=== PATIENT | female | born 1955 | race Caucasian/White ===

== ENCOUNTER 2020-12-11 16:54 | Emergency (ER) | payer MEDICARE ==
[~2020-12-11] VITALS: Ht 162.5 cm; Wt 63.5 kg
[2020-12-11 17:49] LABS: BASO % 0.1 % (0.0-1.0); HEMATOCRIT 38.5 % (37.0-47.0); LYMPH # 0.6 10*3/uL (1.3-4.4); LYMPH % 8.5 % (27.0-41.0); MEAN CELL VOLUME 99.7 fl (81.0-99.0); MEAN CORPUSCULAR HGB 32.1 pg (27.0-31.0); MEAN CORPUSCULAR HGB CONC 32.2 g/dl (33.0-37.0); MONO % 13.7 % (3.0-9.0); NEUT # 5.6 10*3/uL (2.3-7.9); PLATELET COUNT AUTOMATED 220 10*3/uL (130-400); RED BLOOD COUNT 3.86 10*6/uL (4.10-5.10); RED CELL DISTRI WIDTH 13.1 % (0-14.5); WHITE BLOOD COUNT 7.3 10*3/uL (4.8-10.8)
[2020-12-11 18:09] LABS: ALBUMIN 2.9 gm/dl (3.1-4.5); CREATININE 1.15 mg/dL (0.55-1.02); POTASSIUM 4.1 mmol/L (3.5-5.1); TOTAL PROTEIN 7.4 gm/dL (6.4-8.2)
[2020-12-11] MEDS ORDERED: DECADRON6 M1 PO (19:09)
== END 2020-12-11 19:45 | disposition home or self-care (01) ==
LOC: ED 16:54
PROVIDERS: Student in an Organized Health Care Education/Training Program
DX: U07.1 COVID-19 (principal); E88.09 Other disorders of plasma-protein metabolism, not elsewhere classified; N18.31 Chronic kidney disease, stage 3a; R11.2 Nausea with vomiting, unspecified; F17.200 Nicotine dependence, unspecified, uncomplicated; Z88.1 Allergy status to other antibiotic agents

== ENCOUNTER 2022-12-12 14:08 | Emergency (ER) | payer OTHER ==
[~2022-12-12] VITALS: Ht 162.5 cm; Wt 63.5 kg
[~2022-12-12 14:08] MED LIST: DECADRON6 M1 PO
[2022-12-12 16:46] LABS: BASO # 0.1 10*3/uL (0.0-0.1); BASO % 0.6 % (0.0-1.0); EOS # 0.2 10*3/uL (0.0-0.4); EOS % 1.3 % (1.0-4.0); HEMATOCRIT 33.3 % (37.0-47.0); LYMPH % 16.9 % (27.0-41.0); MEAN CELL VOLUME 99.1 fl (81.0-99.0); MEAN CORPUSCULAR HGB 32.7 pg (27.0-31.0); MEAN PLATELET VOLUME 10.3 fl (9.6-12.3); MONO # 1.1 10*3/uL (0.1-1.0); MONO % 9.2 % (3.0-9.0); NEUT # 8.6 10*3/uL (2.3-7.9); NEUT % 71.4 % (47.0-73.0); PLATELET COUNT AUTOMATED 296 10*3/uL (130-400); RED BLOOD COUNT 3.36 10*6/uL (4.10-5.10); RED CELL DISTRI WIDTH 12.7 % (0-14.5)
[2022-12-12] MEDS ORDERED: PREDNISONE10 MG PO (17:03)
[2022-12-12] MEDS ORDERED: VIBRA-TAB100 MG PO (17:03)
[2022-12-12 17:11] LABS: ALKALINE PHOSPHATASE 99 U/L (46-116); BUN 26 mg/dl (9-23); CHLORIDE 107 mmol/L (98-107); POTASSIUM 4.4 mmol/L (3.4-5.1); SGPT/ALT < 7 U/L (10-49); TOTAL PROTEIN 6.4 gm/dL (6.0-8.0)
[2022-12-12] MEDS ORDERED: Ondansetron4 MG PO (17:39)
== END 2022-12-12 18:00 | disposition home or self-care (01) ==
LOC: ED 14:08
PROVIDERS: Student in an Organized Health Care Education/Training Program
DX: J44.1 Chronic obstructive pulmonary disease with (acute) exacerbation (principal); Z20.822 Contact with and (suspected) exposure to COVID-19; R11.2 Nausea with vomiting, unspecified; Z88.1 Allergy status to other antibiotic agents

== ENCOUNTER → 2024-05-14 | Outpatient (CLI) | payer OTHER ==
[~2024-05-14] MED LIST changes: +GLIPIZIDE10 M2 PO; +NATURE'S BLEND F1 MG PO; +Ondansetron4 MG PO; +PANTOPRAZOLE SO40 MG PO; +PHARMASSURE V500 MCG PO; +PREDNISONE10 MG PO; +RAMIPRIL2.5 MG PO; +VIBRA-TAB100 MG PO; +VITAMIN D350 MC2 PO
== END | disposition home or self-care (01) ==
LOC: RAD 15:28
PROVIDERS: ATTEND Nurse Practitioner Family
DX: M47.812 Spondylosis without myelopathy or radiculopathy, cervical region (principal); M54.2 Cervicalgia; M25.512 Pain in left shoulder; M43.22 Fusion of spine, cervical region

== ENCOUNTER 2024-12-19 14:25 | Emergency (ER) | payer OTHER ==
[~2024-12-19] VITALS: Ht 162.5 cm; Wt 62.1 kg
[2024-12-19] MEDS ORDERED: Ondansetron4 MG PO (14:38)
[2024-12-19] MEDS ORDERED: FAMOTIDINE40 MG PO (14:39)
[2024-12-19] MEDS ORDERED: FAMOTIDINE 50 ML IV ONE (14:50)
[2024-12-19] MEDS ORDERED: MG-AL HYDROXIDE/SIMETICONE 30 ML UDC PO STA (14:50)
[2024-12-19] MEDS ORDERED: Lidocaine Hydrochloride 15 ML UDC PO STA (14:50)
[2024-12-19] MEDS ORDERED: SODIUM CHLORIDE 0.9% 1,000 ML IV ONE (14:50)
[2024-12-19] MEDS ORDERED: Dicyclomine Hydrochloride 20 MG/10 ML OSYR PO STA (14:50)
[2024-12-19] MEDS ORDERED: Metoclopramide Hydrochloride 10 MG/2 ML VIAL IV ONE (14:55)
[2024-12-19] MEDS ORDERED: diphenhydrAMINE hydrochloride 50 MG/ML VIAL IV ONE (14:55)
[2024-12-19] MEDS ORDERED: MORPHINE Sulfate 2 MG/ML SYR IV ONE (14:55)
[2024-12-19 15:18] LABS: BASO % 0.3 % (0.0-1.0); EOS # 0.1 10*3/uL (0.0-0.4); EOS % 0.4 % (1.0-4.0); HEMATOCRIT 41.2 % (37.0-47.0); MEAN CELL VOLUME 101.5 fl (81.0-99.0); MEAN CORPUSCULAR HGB CONC 32.5 g/dl (33.0-37.0); MONO # 1.2 10*3/uL (0.1-1.0); MONO % 7.7 % (3.0-9.0); NEUT # 12.7 10*3/uL (2.3-7.9); NEUT % 84.7 % (47.0-73.0); PLATELET COUNT AUTOMATED 324 10*3/uL (130-400); RED BLOOD COUNT 4.06 10*6/uL (4.10-5.10); RED CELL DISTRI WIDTH 13.2 % (0-14.5)
[2024-12-19 15:39] LABS: ALKALINE PHOSPHATASE 121 U/L (46-116); BUN 25 mg/dl (9-23); CHLORIDE 93 mmol/L (98-107); LIPASE 29 U/L (12-53); POTASSIUM 3.3 mmol/L (3.4-5.1); TOTAL PROTEIN 6.8 gm/dL (6.0-8.0)
[2024-12-19 15:43] LABS: SGPT/ALT < 7 U/L (5-49)
[2024-12-19] MEDS ORDERED: INSULIN REGULAR, HUMAN 1 UNIT/0.01 ML IV ONE (16:45)
[2024-12-19] MEDS ORDERED: POTASSIUM CHLORIDE 20 MEQ TAB PO ONE ×2 (16:45→17:05)
[2024-12-19 17:22] LABS: BILIRUBIN 2+ (Negative); BLOOD Trace-Intact (Negative); CLARITY Turbid (Clear); COLOR Dark Yellow (Yellow); GLUCOSE 1+ (Negative); KETONE Trace (Negative); LEUKO ESTERASE 1+ (Negative); NITRITE Negative (Negative); SPECIFIC GRAVITY 1.015 (1.001-1.030)
[2024-12-19 17:29] LABS: BACTERIA 3+
[2024-12-19 17:30] LABS: EPITHELIAL CELLS TNTC; HYALINE CAST 0-2; RBC 0-2 rbc/hpf (0-2)
[2024-12-19] MEDS ORDERED: HYDROCODONE-AC1 EAC1 PO (17:41)
[2024-12-19] MEDS ORDERED: SEPTDS PO (17:41)
== END 2024-12-19 17:45 | disposition home or self-care (01) ==
LOC: ED 14:25
PROVIDERS: Physician Assistant Medical
DX: A41.9 Sepsis, unspecified organism (principal); N39.0 Urinary tract infection, site not specified; E11.65 Type 2 diabetes mellitus with hyperglycemia; J44.9 Chronic obstructive pulmonary disease, unspecified; K21.9 Gastro-esophageal reflux disease without esophagitis; R11.2 Nausea with vomiting, unspecified; R19.7 Diarrhea, unspecified; E11.22 Type 2 diabetes mellitus with diabetic chronic kidney disease; N18.6 End stage renal disease; F17.200 Nicotine dependence, unspecified, uncomplicated; Z88.1 Allergy status to other antibiotic agents; Z88.6 Allergy status to analgesic agent; Z98.890 Other specified postprocedural states; Z90.710 Acquired absence of both cervix and uterus

== ENCOUNTER → 2025-01-29 | Outpatient (CLI) | payer OTHER ==
[~2025-01-29] MED LIST changes: +FAMOTIDINE40 MG PO; +HYDROCODONE-AC1 EAC1 PO; +OMEPRAZOLE40 MG PO; +Ondansetron8 MG PO; +SEPTDS PO
[2025-01-29 11:15] LABS: HEMATOCRIT 32.6 % (37.0-47.0); MEAN CELL VOLUME 109.8 fl (81.0-99.0); MEAN PLATELET VOLUME 10.2 fl (9.6-12.3); PLATELET COUNT AUTOMATED 174 10*3/uL (130-400); RED BLOOD COUNT 2.97 10*6/uL (4.10-5.10); RED CELL DISTRI WIDTH 13.6 % (0-14.5); WHITE BLOOD COUNT 11.6 10*3/uL (4.8-10.8)
[2025-01-29 11:16] LABS: MANUAL DIFF REFLEX YES
[2025-01-29 11:42] LABS: TOTAL CELLS COUNTED 100 #CELLS
[2025-01-29 11:43] LABS: ALKALINE PHOSPHATASE 107 U/L (46-116); BUN 13 mg/dl (9-23); CHLORIDE 104 mmol/L (98-107); FREE T4 1.31 ng/dl (0.89-1.76); POTASSIUM 4.7 mmol/L (3.4-5.1); SGPT/ALT 12 U/L (5-49); TOTAL PROTEIN 5.5 gm/dL (6.0-8.0)
[2025-01-29 11:44] LABS: BURR CELLS MODERATE; PLATELET SUFFICIENCY NORMAL (NORMAL)
== END | disposition home or self-care (01) ==
LOC: LAB 10:48
PROVIDERS: ATTEND Internal Medicine Hematology & Oncology
DX: I49.1 Atrial premature depolarization (principal); C22.1 Intrahepatic bile duct carcinoma; E11.9 Type 2 diabetes mellitus without complications

== ENCOUNTER 2025-02-05 10:56 | Observation (INO) | payer OTHER ==
[2025-02-05] VITALS (16 sets, daily range): BP systolic 44–140; BP diastolic 15–69
[~2025-02-05] VITALS: Ht 162.5 cm; Wt 55.3 kg
[2025-02-05] MEDS ORDERED: diphenhydrAMINE hydrochloride 50 MG/ML VIAL IV ONE (11:20)
[2025-02-05] MEDS ORDERED: SODIUM CHLORIDE 0.9% 1,000 ML IV ONE ×2 (11:20)
[2025-02-05] MEDS ORDERED: FAMOTIDINE 50 ML IV ONE (11:20)
[2025-02-05] MEDS ORDERED: Metoclopramide Hydrochloride 10 MG/2 ML VIAL IV ONE (11:20)
[2025-02-05] MEDS ORDERED: Nicotine 21 MG PATCH T ONE (12:15)
[2025-02-05] MEDS ORDERED: Vancomycin Hydrochloride 250 ML IV ONE (12:55)
[2025-02-05] MEDS ORDERED: NOREPINEPHRINE BITARTRATE/D5W 250 ML IV ONE ×2 (13:00→17:58)
[2025-02-05] MEDS ORDERED: CEFEPIME HCL IN DEXTROSE 5 % 50 ML IV ONE (13:00)
[2025-02-05] MEDS ORDERED: SODIUM CHLORIDE 0.9% 500 ML IV ONE (14:09)
[2025-02-05] MEDS ORDERED: HYDROmorphONE Hydrochloride 0.5 MG/0.5 ML SYRINGE IV ONE (14:40)
[2025-02-05] MEDS ORDERED: Ondansetron Hydrochloride 4 MG/2 ML VIAL IV ONE (14:40)
[2025-02-05] MEDS ORDERED: ACETAMINOPHEN 325 MG TAB PO PRN (15:45)
[2025-02-05] MEDS ORDERED: TEMAZEPAM 15 MG CAP PO PRN (15:45)
[2025-02-05] MEDS ORDERED: ACETAMINOPHEN 650 MG SUPP R PRN (15:45)
[2025-02-05] MEDS ORDERED: BISACODYL 5 MG TAB PO PRN (15:45)
[2025-02-05] MEDS ORDERED: Magnesium Hydroxide 30 ML UDC PO PRN (15:45)
[2025-02-05] MEDS ORDERED: Acetaminophen/Hydrocodone 5 MG/325 MG TABLET PO PRN (15:45)
[2025-02-05] MEDS ORDERED: BISACODYL 10 MG SUPP R PRN (15:45)
[2025-02-05] MEDS ORDERED: Ondansetron Hydrochloride 4 MG/2 ML VIAL IV SCH (15:45)
[2025-02-05] MEDS ORDERED: DEXTROSE 10 % IN WATER 250 ML IV PRN (15:50)
[2025-02-05] MEDS ORDERED: ASPIRIN, CHEWABLE 81 MG TAB PO ONE (15:50)
[2025-02-05] MEDS ORDERED: ATORVASTATIN CALCIUM 80 MG TAB PO SCH (15:55)
[2025-02-05] MEDS ORDERED: SODIUM CHLORIDE 0.9% 1,000 ML IV SCH (15:55)
[2025-02-05] MEDS ORDERED: HEPARIN SODIUM 250 ML IV SCH (15:55)
[2025-02-05] MEDS ORDERED: Nicotine 21 MG PATCH T SCH (16:04)
[2025-02-05] MEDS ORDERED: INSULIN LISPRO 1 UNIT/0.01 ML SQ SCH (16:30)
[2025-02-05] MEDS ORDERED: Promethazine Hydrochloride 25 MG/ML VIAL IM ONE (17:05)
[2025-02-06] MEDS ORDERED: Pantoprazole Sodium 40 MG VIAL IV SCH (06:00)
[2025-02-06] MEDS ORDERED: ASPIRIN, CHEWABLE 81 MG TAB PO SCH (10:00)
== END 2025-02-05 21:12 | disposition short-term general hospital (02) ==
LOC: ED 10:56 → EDHOLD 14:45
PROVIDERS: Emergency Medicine; ADMIT Family Medicine; ATTEND Family Medicine
DX: I21.4 Non-ST elevation (NSTEMI) myocardial infarction (principal); R57.9 Shock, unspecified; R11.2 Nausea with vomiting, unspecified; R79.89 Other specified abnormal findings of blood chemistry; E87.1 Hypo-osmolality and hyponatremia; F17.210 Nicotine dependence, cigarettes, uncomplicated; J44.9 Chronic obstructive pulmonary disease, unspecified; G62.9 Polyneuropathy, unspecified; E11.65 Type 2 diabetes mellitus with hyperglycemia; N18.31 Chronic kidney disease, stage 3a; D63.1 Anemia in chronic kidney disease; N17.0 Acute kidney failure with tubular necrosis; Z79.84 Long term (current) use of oral hypoglycemic drugs; Z79.899 Other long term (current) drug therapy; Z88.8 Allergy status to other drugs, medicaments and biological substances